=== PATIENT | male | born 1950 | race Caucasian/White ===

== ENCOUNTER 2019-01-15 11:26 | Inpatient (IN) | payer MEDICARE ==
[2019-01-15 11:55] LABS: #Basophils 0.1 thou/uL (0.0-0.2); #Eosinphils 0.3 thou/uL (0.0-0.7); #Lymphocytes 4.7 thou/uL (1.20-3.40); #Neutrophils 7.1 thou/uL (1.40-6.50); %Basophils 0.7 % (0.0-1.0); %Eosinophils 1.9 % (0.0-10.0); %Lymphocytes 35.5 % (21.0-51.0); %Monocytes 7.7 % (0.0-10.0); %Neutrophils 54.2 % (42.0-75.0); Hemoglobin 14.7 g/dL (14.0-18.0); Mean Corpuscular HGB CONC 32.6 g/dL (32.0-36.0); Mean Corpuscular Hemoglobin 29.7 pg (27.0-31.0); Mean Corpuscular Volume 91.1 fL (78.0-98.0); Mean Platelet Volume 7.5 fL (7.4-10.4); Platelet Count 387 thou/uL (130-400); RBC Distribution Width 12.5 % (11.5-14.5); Red Blood Cell (RBC) Count 4.94 mill/uL (4.70-6.10); White Blood Cell (WBC) Count 13.1 thou/uL (4.8-10.8)
--- NOTE | 2019-01-15 12:03 | RAD ---
Exam: XR Femur Lt 2 View STANDARD HISTORY: Trauma. COMPARISON: None FINDINGS: AP projection of the left femur is submitted for interpretation. There is incomplete visualization of a comminuted fracture involving the proximal left tibial metaphy sis with fracture of the lateral tibial plateau and depression of the tibial plateau fracture with intra-articular step-off and gap present. This is better visualized on views of the knee. No obvious fracture is seen involving the left femur, and there is no dislocation appreciated. Artifact overlies the superior aspect left hip. IMPRESSION: 1. Comminuted fracture with intra-articular extension involving the left tibial metaphysis with depre ssion of the left tibial plateau. This fracture is better visualized on views of the knee, and please see that exam for further evaluation. 2. A single AP projection of the femur is submitted, and no fracture is seen involving the left femur .
[2019-01-15 12:23] LABS: ALT (SGPT) 24 U/L (8-55); AST (SGOT) 21 U/L (5-34); Albumin 4.1 g/dL (3.4-4.8); Alkaline Phosphatase 79 U/L (40-150); Anion Gap 18 mmol/L (10-20); BUN (Urea Nitrogen) 12 mg/dL (8.4-25.7); Bilirubin, Total 0.4 mg/dL (0.2-1.2); Calc. Creatinine Clearance 0 mL/min (70-130); Calcium 9.6 mg/dL (7.8-10.44); Carbon Dioxide 19 mmol/L (23-31); Chloride 106 mmol/L (98-107); Estimated GFR-MDRD 66; Globulin 2.8 g/dL (2.4-3.5); Glucose 88 mg/dL (80-115); Potassium 4.6 mmol/L (3.5-5.1); Protein, Total 6.9 g/dL (5.8-8.1); Sodium 138 mmol/L (136-145)
[2019-01-15] MEDS ORDERED: Fentanyl 100 MCG/2 ML VIAL ONE ×2 (12:52→17:06)
[2019-01-15] MEDS ORDERED: Dextrose 5% in Water 1,000 ML IV PRN (13:37)
[2019-01-15] MEDS ORDERED: Dextrose 50% Abboject 50 ML SYRINGE SLOW IVP PRN (13:37)
[2019-01-15] MEDS ORDERED: Ondansetron ODT 4 MG TAB PO PRN (13:41)
[2019-01-15] MEDS ORDERED: Ondansetron PF 4 MG/2 ML Vial IVP PRN (13:41)
[2019-01-15] MEDS ORDERED: traMADol HCl 50 MG TAB PO PRN (13:43)
--- NOTE | 2019-01-15 13:53 | RAD ---
LEFT KNEE FOUR VIEWS: 01/15/19 HISTORY: Injury. Left knee pain. FINDINGS/IMPRESSION: There is a comminuted fracture involving the proximal tibia including the lateral tibial plateau. A j oint effusion is present. POS: APRIL
--- NOTE | 2019-01-15 14:00 | RAD ---
PORTABLE CHEST ONE VIEW: 01/15/19 at 11:31 a.m. HISTORY: Left tibial fracture. FINDINGS: There are no previous exams for comparison. There is elevation of the right hemidiaphragm. The heart size is normal. No focal areas of consolidat ion, pneumothoraces, or pleural effusions are seen. IMPRESSION: No acute process. POS: APRIL
--- NOTE | 2019-01-15 14:01 | RAD ---
LEFT LEG TWO VIEWS: 01/15/19 HISTORY: Injury, left leg pain. FINDINGS/IMPRESSION: There are comminuted fractures involving the proximal tibia with involvement of the tibial plateaus. POS: APRIL
[2019-01-15] MEDS ORDERED: Lidocaine 1% PF 5 ML VIAL ONE (14:58)
[2019-01-15] MEDS ORDERED: Dexamethasone 20 MG/5 ML VIAL ONE (14:58)
[2019-01-15] MEDS ORDERED: Glycopyrrolate 0.2 MG/ML 5 ML SYRINGE ONE (14:58)
[2019-01-15] MEDS ORDERED: Ketorolac Tromethamine 30 MG/ML VIAL ONE (14:58)
[2019-01-15] MEDS ORDERED: Rocuronium Bromide 10 MG/ML (10ML VIAL) ONE (14:58)
[2019-01-15] MEDS ORDERED: Ondansetron PF 4 MG/2 ML Vial ONE (14:58)
[2019-01-15] MEDS ORDERED: PROPOFOL 200 MG/20 ML VIAL ONE (14:58)
[2019-01-15] MEDS ORDERED: CEFAZOLIN 2 GM in Premix Bag 1 BAG IVPB SCH (15:00)
--- NOTE | 2019-01-15 16:01 | CT ---
CT LEFT KNEE WITH CORONAL AND SAGITTAL REFORMATIONS AND NO IV CONTRAST: 01/15/19 HISTORY: Fall. Left knee pain. Left tibial fracture. FINDINGS: There is a comminuted fracture involving the proximal left tibia with 7.5 mm depression of the latera l tibial plateau. There are few tiny bone fragments in the lateral tibiofemoral space. The fracture l ine also extends into the anterior aspect of the medial tibial plateau. The distal femur, patella and the proximal fibula appear intact. A joint effusion is present. There is 5 mm depression of the medial tibial plateau. IMPRESSION: Comminuted fracture of the proximal left tibia with depression of the tibial plateaus. POS: [facility]
[2019-01-15] MEDS ORDERED: Morphine 2 MG/ML SYRINGE ONE (16:44)
[2019-01-15] MEDS ORDERED: Midazolam HCl 2 mg/2 ml Vial ONE (17:06)
[2019-01-15] MEDS ORDERED: HYDROmorphone 2 MG/ML VIAL ONE (20:04)
--- NOTE | 2019-01-15 20:06 | RAD ---
XR Tib Fib Lt Leg 2 View HISTORY: Intraoperative film COMPARISON: Earlier examination of the same day. FINDINGS: There is been open reduction and internal fixation of a proximal tibial fracture involving the tibial plateau region. This is been fixed with medial and lateral plate and screws. Bony alignment appears satisfactory. IMPRESSION: Open reduction internal fixation of proximal tibial fracture
[2019-01-15] MEDS ORDERED: Promethazine HCl 25 MG/ML VIAL IM PRN (20:29)
[2019-01-15] MEDS ORDERED: Ondansetron HCl/PF 4 MG/2 ML Vial IVP PRN (20:29)
[2019-01-15] MEDS ORDERED: Promethazine HCl 25 MG/ML VIAL SLOW IVP PRN (20:29)
[2019-01-15] MEDS ORDERED: HYDROmorphone 2 MG/ML VIAL SLOW IVP PRN (20:29)
[2019-01-16] MEDS ORDERED: Ibuprofen 600 MG TAB PO SCH (08:00)
--- NOTE | 2019-01-16 08:26 | HP ---
This is Zakia Cardenas PA-C dictating a report for Remy Santiago DO. ATTENDING SURGEON: Remy Santiago DO. TRAUMA ACTIVATION: Level II. HISTORY OF PRESENT ILLNESS: Yoan Jordan is a 68-year-old gentleman who presented to [facility] as a level II trauma activation status post fall from ladder. Per the patient, he was reaching overhead, lost center of gravity imbalance, and jumped off a ladder, landing primarily on his left lower extremity. The patient denies head trauma or loss of consciousness. He had immediate onset of left lower extremity pain and swelling. He was unable to ambulate at the scene. He was seen and evaluated in the emergency room and found to have a left tibial plateau and proximal tibia fracture. Orthopedic Surgery was notified and Trauma Service was asked to admit. Upon my evaluation, the patient has a chief complaint of left lower extremity pain, 3/10, improved with pain medication, worsened with movement. Pain is associated with swelling and deformity of the left lower extremity. ALLERGIES: THE PATIENT DENIES. HOME MEDICATIONS: Include; 1. Amlodipine 5 mg daily. 2. Allopurinol 300 mg daily. CHRONIC MEDICAL ILLNESSES: Hypertension, hyperlipidemia. PAST SURGICAL HISTORY: Right knee surgery x2. SOCIAL HISTORY: The patient is a daily drinker. More than 5 beers daily. Denies tobacco or illicit drug use. FAMILY HISTORY: Noncontributory in this age patient. REVIEW OF SYSTEMS: A 10-point review of systems was performed and negative except as indicated in the HPI. PHYSICAL EXAMINATION: VITAL SIGNS: On arrival, blood pressure 110/51, pulse 82, respiration 20, O2 saturation 92% on room air, temperature 98.8. GENERAL: Elderly-appearing male, in no acute distress, resting in bed. HEAD: Normocephalic, atraumatic. EYES: Pupils are PERRL. Extraocular movements are intact. NECK: Supple. Trachea is midline. There is no midline tenderness to palpation. Range of motion is within normal limits for patient. CHEST: Atraumatic. Nontender to palpation. Normal work of breathing. Symmetric rise. LUNGS: Clear to auscultation bilaterally. CARDIOVASCULAR: Regular rate and rhythm. No obvious murmurs, rubs, or gallops. EXTREMITIES: Well perfused. GI: Abdomen is atraumatic, soft, nontender, nondistended. Bowel sounds are positive. There is no palpable organomegaly. MUSCULOSKELETAL: Back exam is within normal limits for patient. Pelvis is stable. Bilateral upper extremities within normal limits. Right lower extremity within normal limits with an old surgical scar on the anterior aspect of the knee. Left lower extremity is in a knee immobilizer. He is neurovascularly intact distal to the site of his injury. Pulses are 2+ bilaterally. NEUROLOGIC: GCS is 15. No focal deficit is noted. SKIN: Within normal limits for the patient. LABORATORY FINDINGS: WBC 13.1, hemoglobin 14.7, hematocrit 45.1, platelet count 387. Sodium 138, potassium 4.6, chloride 106, carbon dioxide 19, BUN 12, creatinine 1.11, glucose 88. Troponin is less than 0.010. IMAGING STUDIES: EKG with sinus rhythm, heart rate in the 80s. RADIOGRAPHIC FINDINGS: X-ray of the left knee with comminuted fracture involving the proximal tibia to include the lateral tibial plateau per Radiology read. Left tib-fib x-ray with the same x-ray of the left femur was without bony fracture or dislocation of the hip or femur and also demonstrated left tibial fracture. Chest x-ray with a right elevated hemidiaphragm, but no acute cardiopulmonary process or post traumatic injury was identified. ASSESSMENT: 1. Status post fall from ladder. 2. Left tibial fracture. 3. Acute traumatic pain. 4. History of hypertension. 5. History of daily alcohol use. PLAN: The patient has been seen and evaluated by Orthopedic Surgery. They plan for operative intervention later today. The patient denies being on any blood thinners and last oral intake was this morning. Gentle IV fluids for hydration. Pain management with p.o. and IV analgesics. Postoperative PT and OT. Once the patient is postoperative and able to ambulate and tolerate a general diet, he may be a candidate for discharge. DVT and gastritis prophylaxis when appropriate. The patient has been seen and evaluated by the trauma attending, who agrees with my assessment and plan. Job ID: [id number]
[2019-01-16] MEDS ORDERED: hydrALAZINE 20 MG/ML VIAL SLOW IVP PRN (09:28)
[2019-01-16 09:33] VITALS: BMI 36.6
[2019-01-16 10:11] LABS: White Blood Cell (WBC) Count 15.4 thou/uL (4.8-10.8)
[2019-01-16 10:12] LABS: #Lymphocytes 1.1 thou/uL (1.20-3.40); #Monocytes 1.1 thou/uL (0.11-0.59); #Neutrophils 13.2 thou/uL (1.40-6.50); %Basophils 0.1 % (0.0-1.0); %Eosinophils 0.2 % (0.0-10.0); %Lymphocytes 6.9 % (21.0-51.0); %Monocytes 7.1 % (0.0-10.0); %Neutrophils 85.7 % (42.0-75.0); Mean Corpuscular HGB CONC 33.4 g/dL (32.0-36.0); Mean Corpuscular Hemoglobin 30.7 pg (27.0-31.0); Mean Corpuscular Volume 92.1 fL (78.0-98.0); Mean Platelet Volume 7.9 fL (7.4-10.4); Platelet Count 287 thou/uL (130-400); RBC Distribution Width 12.4 % (11.5-14.5); Red Blood Cell (RBC) Count 3.92 mill/uL (4.70-6.10)
[2019-01-16] MEDS: Famotidine 20 MG TAB PO SCH ×3 (10:27→21:08)
[2019-01-16] MEDS: Thiamine 100 MG TAB PO SCH (10:28)
[2019-01-16] MEDS: CEFAZOLIN 2 GM in Premix Bag 1 BAG IVPB SCH ×3 (10:28→18:24)
[2019-01-16] MEDS: Multivit, Therapeutic 1 TAB PO SCH (10:37)
[2019-01-16] MEDS ORDERED: CEFAZOLIN 2 GM in Premix Bag 1 BAG IVPB SCH (11:00)
[2019-01-16] MEDS: Ketorolac Tromethamine 30 MG/ML VIAL IVP SCH ×2 (11:03→11:13)
[2019-01-16] MEDS: Sodium Chloride 0.9% 1,000 ML IV SCH (11:05)
[2019-01-16] MEDS: Acetaminophen 500 MG TAB PO SCH ×6 (11:05→23:16)
[2019-01-16] MEDS: traMADol HCl 50 MG TAB PO SCH ×6 (11:10→23:17)
[2019-01-16] MEDS: Oxazepam 10 MG CAP PO SCH ×4 (11:12→22:06)
--- NOTE | 2019-01-16 14:49 | PRG ---
DATE OF SERVICE: 01/16/2019 SUBJECTIVE: A 68-year-old male who was admitted after a fall from a ladder. He is postop day 1 from left tibial plateau and proximal tibial tibia fracture, status post repair by Ortho. The patient reports the pain is currently 2-3/10 with pain medication. He denies any nausea or vomiting. No overnight events. OBJECTIVE: VITAL SIGNS: Blood pressure 118/76, temperature 98.5, pulse 82, respirations 10, SpO2 96% on room air. GENERAL: Alert and oriented, in no acute distress. He is sitting up in bed. HEENT: Head, normocephalic, atraumatic. NECK: Supple. Trachea midline. PULMONARY: Clear to auscultation bilaterally. No acute distress. CARDIOVASCULAR: Regular rate and rhythm. No murmurs. ABDOMEN: Soft, nontender, nondistended. Bowel sounds present. EXTREMITIES: Left leg in splint. No peripheral edema. 2+ dorsalis pedis pulses. LABORATORY FINDINGS: White blood cell count 15.4, hemoglobin 12, hematocrit 36.1. RADIOGRAPHIC FINDINGS: There are no new images to review. ASSESSMENT AND PLAN: 1. Status post fall from ladder. 2. Left tibial fracture. 3. Acute traumatic pain. 4. Hypertension. 5. Daily alcohol use. 6. The patient is postop day #1, status post left proximal tibial fracture repair by Ortho. We will continue current pain regimen and the patient is tolerating a regular diet. We will discontinue Killian and continue SCDs for DVT prophylaxis. We will continue the patient on Ancef per Ortho recommendations. He will work with Physical and Occupational Therapy. This patient was discussed with Dr. Santiago, during morning rounds. Plan is discussed with the patient and family, who are in agreement with the plan. Job ID: [id number]
[2019-01-16] MEDS: Ibuprofen 600 MG TAB PO SCH ×2 (15:56→21:08)
[2019-01-16 17:15] LABS: Anion Gap 14 mmol/L (10-20); BUN (Urea Nitrogen) 14 mg/dL (8.4-25.7); Calc. Creatinine Clearance 102 mL/min (70-130); Calcium 8.6 mg/dL (7.8-10.44); Carbon Dioxide 22 mmol/L (23-31); Chloride 100 mmol/L (98-107); Estimated GFR-MDRD 69; Glucose 89 mg/dL (80-115); Magnesium 1.8 mg/dL (1.6-2.6); Phosphorus 2.8 mg/dL (2.3-4.7); Potassium 3.9 mmol/L (3.5-5.1); Sodium 132 mmol/L (136-145)
[2019-01-16] MEDS: Aspirin 81 mg Enteric Coated Tablet PO SCH (21:08)
[2019-01-17 04:46] LABS: #Basophils 0.1 thou/uL (0.0-0.2); #Eosinphils 0.3 thou/uL (0.0-0.7); #Lymphocytes 2.9 thou/uL (1.20-3.40); #Monocytes 1.2 thou/uL (0.11-0.59); #Neutrophils 8.4 thou/uL (1.40-6.50); %Basophils 0.5 % (0.0-1.0); %Eosinophils 2.1 % (0.0-10.0); %Lymphocytes 22.8 % (21.0-51.0); %Monocytes 9.1 % (0.0-10.0); %Neutrophils 65.5 % (42.0-75.0); Hemoglobin 11.8 g/dL (14.0-18.0); Mean Corpuscular HGB CONC 32.6 g/dL (32.0-36.0); Mean Corpuscular Hemoglobin 30.6 pg (27.0-31.0); Mean Corpuscular Volume 93.8 fL (78.0-98.0); Mean Platelet Volume 7.5 fL (7.4-10.4); Platelet Count 260 thou/uL (130-400); RBC Distribution Width 12.4 % (11.5-14.5); Red Blood Cell (RBC) Count 3.87 mill/uL (4.70-6.10); White Blood Cell (WBC) Count 12.8 thou/uL (4.8-10.8)
[2019-01-17 05:06] LABS: Anion Gap 12 mmol/L (10-20); BUN (Urea Nitrogen) 15 mg/dL (8.4-25.7); Calc. Creatinine Clearance 102 mL/min (70-130); Calcium 9.1 mg/dL (7.8-10.44); Carbon Dioxide 27 mmol/L (23-31); Chloride 104 mmol/L (98-107); Estimated GFR-MDRD 69; Glucose 91 mg/dL (80-115); Phosphorus 2.5 mg/dL (2.3-4.7); Potassium 3.8 mmol/L (3.5-5.1); Sodium 139 mmol/L (136-145)
[2019-01-17] MEDS: Acetaminophen 500 MG TAB PO SCH ×4 (06:40→23:27)
[2019-01-17] MEDS: Ibuprofen 600 MG TAB PO SCH ×3 (06:40→21:05)
[2019-01-17] MEDS: traMADol HCl 50 MG TAB PO SCH ×4 (06:40→23:28)
[2019-01-17] MEDS: Oxazepam 10 MG CAP PO SCH ×3 (06:42→21:06)
[2019-01-17] MEDS: Allopurinol 300 MG TAB PO SCH (09:59)
[2019-01-17] MEDS: Thiamine 100 MG TAB PO SCH (09:59)
[2019-01-17] MEDS: Multivit, Therapeutic 1 TAB PO SCH (09:59)
[2019-01-17] MEDS: Famotidine 20 MG TAB PO SCH ×2 (10:00→21:05)
[2019-01-17] MEDS: Aspirin 81 mg Enteric Coated Tablet PO SCH ×2 (10:00→21:05)
[2019-01-17] MEDS: Rosuvastatin 10 MG TAB PO SCH (10:00)
[2019-01-17] MEDS ORDERED: Polyethylene Glycol 3350 17 GM Packet PO SCH (10:30)
[2019-01-17] MEDS ORDERED: Senokot S 8.6-50 MG TAB PO SCH (10:30)
[2019-01-17] MEDS ORDERED: Prevnar 13-Val Conj/PF 0.5 ML SYRINGE IM ONE (12:00)
--- NOTE | 2019-01-17 14:15 | PRG ---
DATE OF SERVICE: 01/17/2019 SUBJECTIVE: Mr. Yoan Jordan is a 68-year-old male, who is postop day 2 status post open reduction and internal fixation of his left tibial fracture. The patient fell from a ladder after losing his balance, approximately 3 to 5 feet. Postoperatively, the patient has done well. His pain is controlled with p.o. analgesics, he is ambulating with the assistance of Physical Therapy, he is tolerating a general diet. Unfortunately, the patient's has upper extremity issues secondary to rotator cuff problems and is unable to assist him out of bed or ambulating. This will be a barrier to safe home discharge. Objective: VS: stable and reviewed in EMR Gen: resting in bed, NAD Pulm: normal wob, symmetric chest rise CV: RRR GI: soft nt,nd MSK: orthopedic dressing cdi Neuro: GCS 15 no focal deficit noted Assessment 1: s/p fall from ladder 2: L tib fib fx POD 2 3: acute traumatic pain Plan: Inpatient rehab screen has been recommended. Continue PT and OT. Continue to encourage mobility. Start bowel regimen. The patient was discussed with Orthopedic Surgery. Plan of care was discussed with the patient and family at bedside, and all questions were answered by the time of this dictation. The patient was seen and evaluated with Dr. Santiago. Job ID: [id number] [facility]
[2019-01-17] MEDS: Senokot S 8.6-50 MG TAB PO SCH (21:05)
[2019-01-18] MEDS: Oxazepam 10 MG CAP PO SCH ×3 (05:37→21:19)
[2019-01-18] MEDS: Ibuprofen 600 MG TAB PO SCH ×3 (05:37→21:19)
[2019-01-18] MEDS: traMADol HCl 50 MG TAB PO SCH ×4 (05:37→23:46)
[2019-01-18] MEDS: Acetaminophen 500 MG TAB PO SCH ×4 (05:37→23:46)
[2019-01-18] MEDS: Multivit, Therapeutic 1 TAB PO SCH (09:21)
[2019-01-18] MEDS: Polyethylene Glycol 3350 17 GM Packet PO SCH (09:21)
[2019-01-18] MEDS: Rosuvastatin 10 MG TAB PO SCH (09:21)
[2019-01-18] MEDS: Aspirin 81 mg Enteric Coated Tablet PO SCH ×2 (09:21→21:19)
[2019-01-18] MEDS: Senokot S 8.6-50 MG TAB PO SCH ×2 (09:21→21:19)
[2019-01-18] MEDS: Allopurinol 300 MG TAB PO SCH (09:21)
[2019-01-18] MEDS: Thiamine 100 MG TAB PO SCH (09:21)
[2019-01-18] MEDS: Folic Acid 1 MG TAB PO SCH (09:22)
[2019-01-18] MEDS: Famotidine 20 MG TAB PO SCH ×2 (09:22→21:19)
--- NOTE | 2019-01-18 15:01 | PRG ---
DATE OF SERVICE: 01/18/2019 SUBJECTIVE: This is a 68-year-old gentleman, who is postop day #3 status post open reduction and internal fixation of his left tibial fracture. The patient fell from a ladder after losing his balance approximately 3 or 5 feet. The patient is up in the restroom taking a sponge bath this morning. The patient reports his pain is well controlled and he continues to ambulate with physical therapy assistance. The patient is tolerating a general diet and also had a bowel movement this morning. OBJECTIVE: VITAL SIGNS: Temperature 98.1, pulse 86, respirations 18, SpO2 of 96% on room air, and blood pressure 114/72. GENERAL: The patient is awake and alert, sitting up in chair, in no acute distress. PULMONARY: Symmetrical chest rise. No respiratory distress. CARDIOVASCULAR: Regular rate. Regular rhythm. GI: Soft, nontender, and nondistended. EXTREMITIES: Left splint and bandage are clean, dry, and intact. Moves all extremities. NEUROLOGIC: GCS 15. No focal deficit. ASSESSMENT: 1. Status post fall from ladder. 2. Left tib-fib fracture postop day #3. 3. Acute traumatic pain. PLAN: Pending inpatient rehab placement. Continue supportive care. Continue to encourage mobility in physical and occupational therapy. The plan has been discussed with the patient and family, who agree. Plan was also discussed with the attending physician, who agrees. Job ID: [id number]
[2019-01-19] MEDS: Oxazepam 10 MG CAP PO SCH ×3 (05:22→21:25)
[2019-01-19] MEDS: Ibuprofen 600 MG TAB PO SCH ×3 (05:22→21:25)
[2019-01-19] MEDS: Acetaminophen 500 MG TAB PO SCH ×4 (05:22→23:22)
[2019-01-19] MEDS: traMADol HCl 50 MG TAB PO SCH ×4 (05:23→23:22)
[2019-01-19] MEDS: Rosuvastatin 10 MG TAB PO SCH (09:25)
[2019-01-19] MEDS: Multivit, Therapeutic 1 TAB PO SCH (09:25)
[2019-01-19] MEDS: Aspirin 81 mg Enteric Coated Tablet PO SCH ×2 (09:25→21:25)
[2019-01-19] MEDS: Folic Acid 1 MG TAB PO SCH (09:25)
[2019-01-19] MEDS: Allopurinol 300 MG TAB PO SCH (09:25)
[2019-01-19] MEDS: Thiamine 100 MG TAB PO SCH (09:26)
[2019-01-19] MEDS: Senokot S 8.6-50 MG TAB PO SCH (09:26)
[2019-01-19] MEDS: Polyethylene Glycol 3350 17 GM Packet PO SCH (09:26)
[2019-01-19] MEDS ORDERED: Polyethylene Glycol 3350 17 GM Packet PO PRN (10:36)
[2019-01-19] MEDS ORDERED: Senokot S 8.6-50 MG TAB PO PRN (10:36)
--- NOTE | 2019-01-19 23:40 | PRG ---
DATE OF SERVICE: 01/19/2019 SUBJECTIVE: This is a 68-year-old gentleman, who is postop day #4, status post open reduction and internal fixation of left tibial fracture. The patient fell from a ladder approximately 3 or 5 feet. The patient is sitting up in the chair in no distress. The patient denies any pain at this time. The patient reports no overnight events. The patient continues to ambulate well with physical therapy. The patient continues to have bowel movements. The patient also continues to tolerate a regular diet. OBJECTIVE: VITAL SIGNS: Temperature 97.9, pulse 72, respirations 20, SpO2 of 96% on room air, blood pressure 131/79. GENERAL: The patient awake, alert, in no distress, sitting up in the chair. PULMONARY: Symmetrical chest rise and fall, no respiratory distress. CARDIOVASCULAR: Regular rate, regular rhythm, pedal pulse. No pedal edema. EXTREMITIES: Moves all extremities. Left splint and bandage clean, dry, and intact to the left lower extremity. NEUROLOGIC: No focal deficit. ASSESSMENT: 1. Status post fall from ladder. 2. Left hip tibial fibular fracture postoperative day #4. 3. Acute traumatic pain, resolving. PLAN: The patient continues to await for an inpatient rehab bed. The patient has been approved. Continue supportive care. Continue physical and occupational therapy. We will decrease the patient's bowel regimen as he has had multiple bowel movements today. Plan was discussed with the patient who agrees. The plan was discussed with the attending physician, who agrees. Job ID: [id number]
[2019-01-20] MEDS: Acetaminophen 500 MG TAB PO SCH ×3 (05:38→18:11)
[2019-01-20] MEDS: Oxazepam 10 MG CAP PO SCH ×2 (05:38→15:07)
[2019-01-20] MEDS: traMADol HCl 50 MG TAB PO SCH ×3 (05:39→18:11)
[2019-01-20] MEDS: Ibuprofen 600 MG TAB PO SCH ×2 (05:39→15:08)
[2019-01-20] MEDS: Allopurinol 300 MG TAB PO SCH (08:22)
[2019-01-20] MEDS: Aspirin 81 mg Enteric Coated Tablet PO SCH (08:23)
[2019-01-20] MEDS: Multivit, Therapeutic 1 TAB PO SCH (08:24)
[2019-01-20] MEDS: Folic Acid 1 MG TAB PO SCH (08:24)
[2019-01-20] MEDS: Thiamine 100 MG TAB PO SCH (08:24)
[2019-01-20] MEDS: Rosuvastatin 10 MG TAB PO SCH (08:24)
[2019-01-20] MEDS ORDERED: Amlodipine 5 MG TAB PO SCH (09:00)
[2019-01-20 15:54] VITALS: BP 145/82; TEMP 97.8
--- NOTE | 2019-01-21 00:54 | OP ---
DATE OF PROCEDURE: 01/15/2019 PREOPERATIVE DIAGNOSIS: Closed bicondylar tibial plateau fracture with joint depression of lateral plateau, left. POSTOPERATIVE DIAGNOSIS: Closed bicondylar tibial plateau fracture with joint depression of lateral plateau, left. PROCEDURE PERFORMED: Open reduction and internal fixation of left bicondylar tibial plateau fracture. ANESTHESIA: General. CONTRACTOR GENERAL ENGINEERING: Conner Martino PA-C TOURNIQUET TIME: Zero. ESTIMATED BLOOD LOSS: 400 mL. IMPLANTS: A Synthes 3.5 mm LCP posteromedial tibial plate and a Synthes 3.5 mm LCP proximal lateral plateau plate. COMPLICATIONS: None. DRAINS: None. SPECIMEN: None. OUTCOME: Near-anatomic alignment. INDICATIONS: The patient is a 68-year-old gentleman who is status post fall from ladder where he essentially jumped off the ladder and landed primarily on his left lower extremity. There was no loss of consciousness. However, upon arrival at [facility], x-rays of the leg were obtained. He was found to have a bicondylar fracture with depression of the joint on the lateral plateau and displacement of the posteromedial plateau. After discussion with the patient including risks and benefits, we decided to proceed with open reduction and internal fixation. Risks and benefits have been discussed. Risks include, but are not limited to bleeding, infection, nerve injury, DVT, PE, knee stiffness, knee pain, loss of limb or life. The patient appears to understand and does wish to proceed. Informed consent has been obtained. DESCRIPTION OF PROCEDURE: The patient was brought to the operating room and a time-out was performed followed by induction of general anesthesia. Next, the patient was positioned supine on the OR table and a sterile prep and drape was performed of the left lower extremity. Initially, a bump was placed under the contralateral hip to allow the exposure of the posteromedial aspect of the plateau. Following the sterile prep and drape, an incision was made basically following the posterior border of the tibia along the medial side of the knee. The incision was taken up slightly beyond the knee joint itself. After the skin was sharply incised, dissection was carried down bluntly exposing the posteromedial corner of the proximal tibia. A portion of the hamstring tendons had to be mobilized and elevated to allow for full exposure. Once full exposure was obtained, the fracture could be visualized posteriorly and medially. This was reduced and held in place with a bone tenaculum and then checked under C-arm guidance to confirm appropriate alignment. Next, a posteromedial plate was applied along the posteromedial cortex of the proximal tibia with 2 cortical screws holding the plate in place distal to the fracture line with the plate essentially functioning as a buttress for the time being. Once this completed, attention was then placed at the lateral aspect of the knee. A curvilinear incision was made anterolaterally following the crest of the tibia and then extending posteriorly just proximal to the joint line. After the skin was sharply incised, dissection was carried down bluntly exposing the fascia of the anterior compartment. This was incised in line with the skin incision and then the musculature of the anterior compartment was reflected posteriorly revealing the tibial plateau fracture laterally. Next, an osteotome was used to open up the fracture line anteriorly exposing the proximal tibial metaphyseal bone as well as the joint depression. The hematoma was lavaged from the wound and then the joint depression was elevated and provisionally held in place with K-wires. Once provisionally held in place, there was not felt to be an extensive void in the metaphyseal bone and as such, bone grafting not felt to be necessary. The lateral plateau was then booked closed and held in place with a bone tenaculum while AP, lateral C-arm images were obtained. This showed near anatomic alignment of both medial and lateral condyles of the proximal tibia. Once held appropriately, a proximal lateral plate was applied to the lateral aspect of the tibia and then held in place with cortical screws distally. Rafter screws were then applied proximally in standard fashion capturing the posteromedial fragment as well. Once the screws had been applied to the lateral plate, attention was placed back at the posteromedial and some additional locking screws were placed in the more proximal limb of this plate gaining further fixation. With completion of this, AP, lateral C-arm images were obtained that showed near anatomic alignment. The 2 incisions were then irrigated with Pulsavac and then following the irrigation, wound closure performed. Fascia closure was obtained with 0 Vicryl followed by 2-0 Vicryl and then lalitha for the skin. A Xeroform gauze, Webril, and bulky soft dressing were applied to the knee and then the knee was placed back in a knee immobilizer. The patient was transferred to recovery room in stable condition. There were no complications. The patient tolerated the procedure well. Job ID: [id number]
--- NOTE | 2019-01-21 05:00 | DIS ---
DATE OF ADMISSION: 01/15/2019 DATE OF DISCHARGE: 01/20/2019 This is Neisha Randhawa NP dictating a report for Remy Santiago DO. ADMITTING ATTENDING: Remy Santiago DO DISCHARGING ATTENDING: Remy Santiago DO CONSULTS: Orthopedic Surgery, Dr. Howell. PROCEDURES: 1. X-ray of left knee with comminuted fracture involving the proximal tibia to include the lateral tibia plateau per Radiology read. 2. Left tib-fib x-ray with the same. 3. X-ray of the left femur was without bony fracture or dislocation of the hip or femur and also demonstrated left tibial fracture. 4. Chest x-ray with right elevated hemidiaphragm, but no acute cardiopulmonary process or post traumatic injury identified. 5. Extremity CT, impression, comminuted fracture of the proximal left tibia with depression of the tibial plateau. PRIMARY DIAGNOSIS: Status post fall from ladder with left tibial fracture. SECONDARY DIAGNOSES: 1. Acute traumatic pain, improved. 2. History of hypertension. 3. History of daily alcohol use. DISCHARGE MEDICATIONS: 1. Acetaminophen 1000 mg p.o. q.6 hours. 2. Allopurinol 150 mg daily. 3. Amlodipine 5 mg daily. 4. Aspirin 81 mg p.o. b.i.d. for 30 days. 5. Folic acid 1 mg p.o. daily. 6. Crestor 10 mg p.o. daily. 7. Senokot S as needed. 8. Thiamine 100 mg p.o. daily. 9. Tramadol 50 mg p.o. q.6 hours as needed for pain. There are no discontinued medications. HISTORY OF PRESENT ILLNESS AND HOSPITAL COURSE: This is a 68-year-old gentleman who presented to the emergency room as a level 2 trauma activation status post fall from a ladder. The patient was reaching overhead and lost center of gravity balance and jumped off the ladder, landing primarily on his left lower extremity. The patient denied any trauma to his head, landing primarily on his left extremity. There was no loss of consciousness. The patient was able to work with Physical Therapy postop. The patient's pain was well controlled during his hospital stay. The patient had a delayed hospital course due to pending rehab placement and then rehab bed availability. On the day of discharge, the patient was examined by Dr. Santiago. The patient's exam was unremarkable including cardiopulmonary and GI exam. The patient's vital signs were stable. The patient had no complaints. The patient was deemed stable for discharge to inpatient rehab for continued occupational and physical therapy. DISPOSITION: Stable. DISCHARGE INSTRUCTIONS: 1. Location: Inpatient rehab. 2. Diet: Regular diet. 3. Activity: Orthopedic limitations, strict non-weightbearing to the left lower extremity, knee immobilizer on at all times. FOLLOWUP: 1. Follow up with Dr. Howell in 2 weeks. Please call for appointment. 2. No need to follow up with Trauma Services, Dr. Santiago. Please call for any questions. Job ID: [id number]
== END 2019-01-20 18:40 | DRG 494 ==
LOC: ERS 11:26 → SDC 13:37 → SJJU 21:20
PROVIDERS: ADMIT Surgery; ATTEND Surgery
PROC: 0QSH04Z Reposition Left Tibia with Internal Fixation Device, Open Approach (ICD-10-PCS; principal; 2019-01-15)
PROC: 0QSH04Z Reposition Left Tibia with Internal Fixation Device, Open Approach (ICD-10-PCS; 2019-01-15)
DX: S82.142A Displaced bicondylar fracture of left tibia, initial encounter for closed fracture (principal); W11.XXXA Fall on and from ladder, initial encounter; Y92.9 Unspecified place or not applicable; I10 Essential (primary) hypertension; E78.5 Hyperlipidemia, unspecified; Z72.89 Other problems related to lifestyle; Z79.899 Other long term (current) drug therapy; S82.252A Displaced comminuted fracture of shaft of left tibia, initial encounter for closed fracture
CPT/HCPCS: 36415; 71045; 76000; 80048; 80053; 83735; 84100; 84484; 85025; 93005; 96374; C1713; G0390; J0131; J0690; J1100; J1170; J1885; J2001; J2250; J2270; J2405; J2704; J3010